=== PATIENT | female | born 1960 | race Caucasian/White ===

== ENCOUNTER 2017-06-01 16:03 | Inpatient (IN) | payer MEDICAID ==
[~2017-06-01] VITALS: Ht 161.3 cm; Wt 59.8 kg
[2017-06-01] MEDS ORDERED: HALOPERIDOL 5 MG TABLET PO PRN (16:30)
[2017-06-01] MEDS ORDERED: LORazepam 1 MG TABLET PO PRN (16:30)
[2017-06-01] MEDS ORDERED: ZOLPIDEM TARTRATE 10 MG TABLET PO PRN (16:30)
[2017-06-01 16:40] VITALS: BP 124/73
[2017-06-01] MEDS ORDERED: NITR0.3T SL (16:47)
[2017-06-01 17:30] VITALS: BP 115/77
[2017-06-01] MEDS ORDERED: PERMETHRIN 5% 60 GM CREAM TP ONE (19:15)
[2017-06-01] MEDS ORDERED: PNEUMOCOCCAL VACCINE POLYVALENT 0.5 ML VIAL [PPSV23] IM ONE (20:00)
[2017-06-01] MEDS: QUEtiapine FUMARATE 100 MG TABLET PO SCH (20:36)
[2017-06-02 05:30] VITALS: BP 105/73
[2017-06-02 08:18] LABS: BASOPHILS % (AUTO) 0.7 % (0.0-2.0); EOSINOPHILS % (AUTO) 5.2 % (1.0-6.0); HEMATOCRIT 37.7 % (36-46); HEMOGLOBIN 12.8 g/dL (12.0-16.0); LYMPHOCYTES # (AUTO) 2.9 K/uL (1.0-4.8); LYMPHOCYTES % (AUTO) 29.6 % (22.0-44.0); MEAN CORPUSCULAR HEMOGLOBIN 30.5 pg (26.0-34.0); MEAN CORPUSCULAR VOLUME 90 fL (80-100); MONOCYTES # (AUTO) 0.7 K/uL (0.1-1.0); MONOCYTES % (AUTO) 7.2 % (2.0-9.0); NEUTROPHILS # (AUTO) 5.5 K/uL (1.8-7.7); NEUTROPHILS % (AUTO) 57.3 % (40.0-70.0); PLATELET COUNT (AUTO) 467 K/uL (150-450); RED BLOOD CELL COUNT(AUTO) 4.19 MIL/uL (4.00-5.20); RED CELL DISTRIBUTION WIDTH 15.2 % (11.5-14.5); WHITE BLOOD COUNT (AUTO) 9.6 K/uL (4.5-11.0)
[2017-06-02] MEDS: OXYBUTYNIN CHLORIDE 5 MG TABLET PO SCH (08:38)
[2017-06-02] MEDS: NICOTINE 7 MG/24 HOUR PATCH TD SCH ×2 (08:38→09:00)
[2017-06-02] MEDS: PARoxetine HCL 20 MG TABLET PO SCH (08:39)
[2017-06-02 09:01] LABS: APPEARANCE,URINE CLEAR (CLEAR); GLUCOSE, URINE (UA) NEGATIVE (NEGATIVE); KETONES,URINE NEGATIVE (NEGATIVE); LEUKOCYTE ESTERASE ,URINE NEGATIVE (NEGATIVE); OCCULT BLOOD,URINE SMALL (NEGATIVE); PROTEIN,URINE NEGATIVE (NEGATIVE)
[2017-06-02 09:02] LABS: ADD UA MICROSCOPIC YES
[2017-06-02 09:09] LABS: HEMOGLOBIN A1C 5.5 % (4.5-6.2)
[2017-06-02 09:10] LABS: RBC,URINE 0-2 /HPF (0-2); WBC,URINE 0-2 /HPF (0-5)
[2017-06-02 09:11] LABS: SQUAMOUS EPITHELIAL CELL,UR Few /LPF (None Seen)
[2017-06-02 09:13] VITALS: BP 117/63
[2017-06-02 09:26] LABS: ALANINE AMINOTRANSFERASE 17 U/L (12-78); ALBUMIN 3.4 g/dL (3.4-5.0); ANION GAP 5 mmol/L (8-16); ASPARTATE AMINOTRANSFERASE 13 U/L (15-37); BILIRUBIN,TOTAL 0.3 mg/dL (0.1-1.0); CALCIUM, TOTAL 9.2 mg/dL (8.8-10.5); CARBON DIOXIDE 31 mmol/L (22-29); CHLORIDE 106 mmol/L (98-107); CHOL/HDL RATIO 2.5 (3.9-5.7); CREATININE 0.92 mg/dL (0.60-1.30); GLOMERULAR FILTR. RATE CALC > 60 mL/min (>60); POTASSIUM 4.4 mmol/L (3.5-5.1); SODIUM SERUM 142 mmol/L (136-145); THYROID STIMULATING HORMONE 1.76 uIU/mL (0.36-3.74); TOTAL PROTEIN, SERUM 6.8 g/dL (6.4-8.2); UREA NITROGEN, BLOOD 16 mg/dL (7-18)
[2017-06-02 16:00] VITALS: BP 108/62
[2017-06-02] MEDS: QUEtiapine FUMARATE 100 MG TABLET PO SCH (20:26)
[2017-06-03 06:06] LABS: HEPATITIS Bs ANTIGEN SCREEN P Negative (Negative); HEPATITIS C AB SCREEN <0.1 s/co ratio (0.0-0.9)
[2017-06-03 06:14] VITALS: BP 110/70
[2017-06-03] MEDS ORDERED: QUET50TA PO (07:47)
[2017-06-03] MEDS ORDERED: PARO10OR3 PO (07:48)
[2017-06-03] MEDS ORDERED: OXYB5SYR2 PO (07:48)
[2017-06-03 08:10] VITALS: BP 99/59
[2017-06-03] MEDS: PARoxetine HCL 20 MG TABLET PO SCH (08:34)
[2017-06-03] MEDS: OXYBUTYNIN CHLORIDE 5 MG TABLET PO SCH (08:34)
[2017-06-03] MEDS: NICOTINE 7 MG/24 HOUR PATCH TD SCH (08:35)
[2017-06-03 08:38] VITALS: BP 96/64
[2017-06-03] MEDS ORDERED: BACTDSB PO (11:04)
[2017-06-03] MEDS ORDERED: SULFAMETHOX/TRIMETH DS 800-160 MG/TABLET PO ONE (13:00)
[2017-06-03] MEDS ORDERED: SULFAMETHOX/TRIMETH DS 800-160 MG/TABLET PO SCH (17:00)
== END 2017-06-03 13:15 | disposition home or self-care (01) | DRG 751 ==
LOC: B2S 16:37 → EDSTATUS 16:41 → B2S 17:32
PROVIDERS: ADMIT Psychiatry & Neurology Psychiatry; ATTEND Psychiatry & Neurology Psychiatry
DX: F33.3 Major depressive disorder, recurrent, severe with psychotic symptoms (principal); B85.2 Pediculosis, unspecified; F60.3 Borderline personality disorder; I20.9 Angina pectoris, unspecified; R32 Unspecified urinary incontinence; Z72.0 Tobacco use
CPT/HCPCS: 80074; 82306; 82607; 82746; 83036; 84439; 84443; 87086; 90471